=== PATIENT | male | born 1940 ===

== ENCOUNTER 2017-02-14 19:19 | Emergency (ER) | payer MEDICARE ==
[2017-02-14 19:19] VITALS: BMI 21.1
[2017-02-14 19:26] VITALS: RESP 16; O2SAT 98
[2017-02-14 20:38] LABS: BASO # 0.1 K/uL (0.0-0.2); EOS # 0.4 K/uL (0.0-0.7); EOS % 6.5 % (0.0-4.0); HEMATOCRIT 28.6 % (35.0-51.0); LYMPH % 15.3 % (20.0-40.0); MEAN CELL VOLUME 82.8 fl (80.0-94.0); MEAN CORPUSCULAR HEMOGLOBIN 27.3 pg (27.0-31.0); MEAN PLATELET VOLUME 6.7 fl (7.2-11.7); MONO # 0.5 K/uL (0.0-0.8); NEUT # 4.3 K/uL (1.8-7.0); NEUT % 69.2 % (50.0-75.0); RED CELL DISTRIBUTION WIDTH 15.7 % (11.5-14.5); WHITE BLOOD COUNT 6.2 K/uL (4.8-10.8)
[2017-02-14 20:48] LABS: RBC URINE 3 /hpf (0-3); URINE BACTERIA OCC (<OCC); URINE BILIRUBIN NEGATIVE (NEGATIVE); URINE BLOOD NEGATIVE (NEGATIVE); URINE COLOR AMBER (YELLOW); URINE GLUCOSE (UA) NEG (Normal); URINE KETONE NEGATIVE (NEGATIVE); URINE LEUKOCYTE ESTERASE NEG Leu/uL (Negative); URINE PROTEIN 30 mg/dL (NEGATIVE); URINE UROBILINOGEN 0.2-1.0 mg/dL (0.2-1.0); WBC URINE 1 /hpf (0-5)
[2017-02-14 20:59] LABS: PARTIAL THROMBOPLASTIN TIME 26.5 SECONDS (23.3-32.5)
[2017-02-14 21:05] LABS: ALB/GLOB RATIO 0.6 (1.0-2.1); ALKALINE PHOSPHATASE 102 U/L (38-126); ALT/SGPT 26 U/L (21-72); AST/SGOT 49 U/L (17-59); BILIRUBIN,TOTAL 0.5 mg/dl (0.2-1.3); BLOOD UREA NITROGEN 22 mg/dl (9-20); CALCIUM 9.4 mg/dL (8.4-10.2); CARBON DIOXIDE 24 mmol/L (22-30); CHLORIDE 98 mmol/L (98-107); GFR AFRICAN-AMERICAN > 60; GLUCOSE,RANDOM 115 mg/dL (75-110); MAGNESIUM 1.9 MG/DL (1.6-2.3); PHOSPHOROUS 3.8 mg/dl (2.5-4.5); POTASSIUM 3.9 MMOL/L (3.6-5.0); SODIUM 135 mmol/l (132-148); TOTAL PROTEIN 7.5 G/DL (6.3-8.2)
--- NOTE | 2017-02-14 21:39 | ED PDOC ---
HPI: General Adult Time Seen by Provider: 02/14/17 19:32 Chief Complaint (Nursing): Pain, Chronic Chief Complaint (Provider): Pain, Chronic History Per: Patient History/Exam Limitations: no limitations Onset/Duration Of Symptoms: Days (x1 week) Current Symptoms Are (Timing): Still Present Additional Complaint(s): 76 y/o male with a past medical history of osteoarthritis, colon CA (partially treated and then determined he was not going to continue any more therapy), NPH (recently diagnosed 1 month ago in [facility]) and hypertension who presents to the emergency department with a complaint of diffuse body pain x1 week. 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 Describes the pain is similar to his severe osteoarthritis. Patient also has a complaint of an open lesion located on the left upper thigh similar to previous abscess he had that required incision and drainage back in August; however lesion is open and bleeding. Reports taking Tramadol for the relief of pain. Denies dysuria, trauma, fever, or chills. PMD: Dr. Edward Art MD Past Medical History Reviewed: Historical Data, Nursing Documentation, Vital Signs Vital Signs: Last Vital Signs Temp 98.9 F 02/14/17 23:43 Pulse 82 02/14/17 23:43 Resp 16 02/14/17 23:43 BP 135/75 02/14/17 23:43 Pulse Ox 98 02/14/17 23:43 - Medical History PMH: Arthritis, Cardia Arrhythmia, Dementia, Depression, Emphysema, Malignancy ( COLON CANCER), Rheumatoid Arthritis Denies: Hypothyroidism, Kidney Stones, Chronic Kidney Disease - Surgical History Surgical History: Pacemaker (09/30/2015) - Family History Family History: States: Unknown Family Hx - Social History Current smoker - smoking cessation education provided: No Alcohol: None Drugs: Denies - Immunization History Hx Tetanus Toxoid Vaccination: No Hx Influenza Vaccination: Yes Hx Pneumococcal Vaccination: Yes - Home Medications Home Medications: Ambulatory Orders Medication Instructions Recorded Albuterol HFA [Ventolin HFA 90 2 puff INH RBID #0 inhaler 09/18/16 mcg/actuation (8 g)] Montelukast [Singulair] 10 mg PO HS #0 tab 09/18/16 traMADol [Ultram] 50 mg PO Q8 PRN #0 tab 09/18/16 Pantoprazole [Protonix EC Tab] 40 mg PO DAILY #30 ect 01/12/17 Prednisone 20 mg PO DAILY #30 tab.ds.pk 01/12/17 Ibuprofen [Motrin Tab] 600 mg PO Q8 PRN #60 tab 02/14/17 traMADol [Ultram] 50 mg PO TID PRN #30 tab 02/14/17 - Allergies Allergies/Adverse Reactions: Allergies Allergy/AdvReac Type Severity Reaction Status Date / Time No Known Allergies Allergy Verified 02/14/17 19:23 Review of Systems ROS Statement: Except As Marked, All Systems Reviewed And Found Negative Constitutional: Negative for: Fever, Chills, Other (trauma) ENT: Positive for: Ear Pain (right-sided) Genitourinary Male: Positive for: Other (Dark urine). Negative for: Dysuria Musculoskeletal: Positive for: Neck Pain (Severe right-sided), Shoulder Pain, Arm Pain, Back Pain, Hand Pain, Leg Pain, Foot Pain, Other (Diffuse body pain) Skin: Positive for: Lesions (Open lesion located in the left upper thigh) Physical Exam - Reviewed Nursing Documentation Reviewed: Yes Vital Signs Reviewed: Yes - Physical Exam Appears: Positive for: Non-toxic, Uncomfortable, In Acute Distress (Moderately painful disress) Head Exam: Positive for: ATRAUMATIC, NORMAL INSPECTION, NORMOCEPHALIC Skin: Positive for: Warm, Dry (Circular lesion; 0.5 cm open ulcer on the left lateral thigh. With minimal blood oozing. No surrounding erythema. No purulent discharge), Pallor Cardiovascular/Chest: Positive for: Regular Rate, Rhythm, Other (Has indwelling portacath on the right anteiror chest wall and a pacemaker on the left anterior chest wall ). Negative for: Murmur Respiratory: Positive for: Normal Breath Sounds. Negative for: Accessory Muscle Use, Respiratory Distress Gastrointestinal/Abdominal: Positive for: Normal Exam, Soft, Other (Colostomy bag on the lower left thats intact). Negative for: Tenderness Back: Positive for: Other (Midline tenderness and spinal tenderness of the cervical spine ) Extremity: Positive for: Tenderness (Diffuse tenderness to palpations to all extremities), Deformity (of the fingers and feet consistent with osteoarthritis. No long bone deformities ) Neurologic/Psych: Positive for: Alert, Oriented. Negative for: Motor/Sensory Deficits - Laboratory Results Result Diagrams: 02/14/17 20:30 02/14/17 20:30 - ECG O2 Sat by Pulse Oximetry: 98 (RA) Pulse Ox Interpretation: Normal - Progress Re-evaluation Time: 22:00 Condition: Improved (sleeping comfortably, reporting improvement) Medical Decision Making Medical Decision Making: Time: 19:32 Initial impression: Intractable pain differential includes dehydration, electrolyte abnormalities, sepsis , urinary tract infection, osteoarthritis, and cellulitis Initial plan: --Electrocardiogram Stat --ED Urine Dipstick (POC) --EKG-ED (EDNURTX) Stat --Chest Portable (RAD) --Morphine 4 mg IVP --Toradol 15 mg IV --Blood Culture Stat --Urine Culture Stat --Wound culture and gram stain --IV Insertion (Saline Lock) --Revaluation Labs demonstrate minimally elevated BUN, mildly hypoalbunemia, hyaline cast in urine, otherwise no clinically significant lab abnormalities. On reevaluation, pt's pain markedly improved after pain meds. Clinical impression: Mild dehydration and exacerbation of chronic pain DW pt and family findings and plan of care. Scribe Attestation: Documented by Leisa Glover, acting as a scribe for Jenna Schneider MD. Provider Scribe Attestation: All medical record entries made by the Scribe were at my direction and personally dictated by me. I have reviewed the chart and agree that the record accurately reflects my personal performance of the history, physical exam, medical decision making, and the department course for this patient. I have also personally directed, reviewed, and agree with the discharge instructions and disposition. Disposition - Clinical Impression Clinical Impression: Psoriatic arthritis Counseled Patient/Family Regarding: Studies Performed, Diagnosis, Need For Followup, Rx Given - Disposition Referrals: Edward Art MD [Staff Provider] - 02/15/17 Disposition: Routine/Home Disposition Time: 22:30 Condition: FAIR Additional Instructions: FOLLOW UP WITH YOUR DOCTOR TOMORROW FOR FURTHER MANAGEMENT Prescriptions: Ibuprofen [Motrin Tab] 600 mg PO Q8 PRN #60 tab PRN Reason: Pain, Moderate (4-7) traMADol [Ultram] 50 mg PO TID PRN #30 tab PRN Reason: SEVERE PAIN ONLY Instructions: Osteoarthritis (ED), Narcotic Pain Management (ED) Print Language: BERMUDIAN
[2017-02-14 23:43] VITALS: BP 135/75; PULSE 82; TEMP 98.9
--- NOTE | 2017-02-15 10:44 | RAD ---
HISTORY: Pain COMPARISON: 11/16/2014. FINDINGS: LUNGS: There are low lung volumes and interstitial thickening in both lungs. There are fibrotic changes in the left upper lobe. PLEURA: No significant pleural effusion identified, no pneumothorax apparent. CARDIOVASCULAR: The heart is normal in size. There is stable position of a left-sided dual lead transvenous permanent pacing device. OSSEOUS STRUCTURES: There is diffuse bone demineralization and severe degenerative osteoarthrosis in the right shoulder joint. VISUALIZED UPPER ABDOMEN: Normal. OTHER FINDINGS: None. IMPRESSION: Findings are most compatible with interstitial lung disease/ chronic interstitial edema and fibrotic changes in the left upper lobe.
--- NOTE | 2017-02-15 18:08 | CARD ---
APPROVED REPORT EKG Measurement Heart [id number] <Conclusion> Normal sinus rhythm Rightward axis Nonspecific intraventricular block Cannot rule out Anterior infarct, age undetermined Abnormal ECG
== END 2017-02-14 23:45 | disposition home or self-care (01) ==
LOC: H.ER 19:19
DX: M54.2 Cervicalgia (principal); L40.50 Arthropathic psoriasis, unspecified; I10 Essential (primary) hypertension; C18.9 Malignant neoplasm of colon, unspecified
CPT/HCPCS: 71010; 80053; 81003; 83605; 83735; 84100; 85025; 85610; 85730; 87040; 87070; 87086; 93005; 96374; 99284; G0480; J1885; J2270